=== PATIENT | female | born 1955 | race Caucasian/White ===

== ENCOUNTER → 2017-03-12 | Outpatient (CLI) | payer OTHER ==
[~2017-03-12] MED LIST: CETI10TA84; DSY50; EZET10TA63; LRT5 PO; PRAV20TA
--- NOTE | 2017-03-12 15:51 | MAMMOGRAPHY REPORT ---
BILATERAL DIGITAL SCREENING MAMMOGRAM WITH CAD: 03/12/2017 CLINICAL HISTORY: Routine screening. Patient has no complaints. TECHNIQUE: Bilateral CC and MLO views were obtained. Current study was also evaluated with a Compute r Aided Detection (CAD) system. COMPARISON: Comparison is made to exams dated: 02/28/2016 mammogram, 02/22/2015 mammogram, 02/16/2014 m ammogram, 02/07/2013 mammogram, 01/25/2011 mammogram, and 02/05/2012 mammogram - [facility]. BREAST COMPOSITION: There are scattered areas of fibroglandular density in both breasts. FINDINGS: There is an asymmetry in the upper outer quadrant of the left breast, for which additional spot compression tomosynthesis views and possibly ultrasound are recommended. No other suspicious mass, architectural distortion or cluster of microcalcifications is seen bilatera lly. IMPRESSION: ACR BI-RADS CATEGORY 0: INCOMPLETE EVALUATION: NEED ADDITIONAL IMAGING EVALUATION The asymmetry in the upper outer quadrant of the left breast needs additional evaluation. The patient will be called to schedule an appointment. Approximately 10% of breast cancers are not detected with mammography. A negative mammographic report should not delay biopsy if a clinically suggestive mass is present. Brianne Sandoval M.D. ay/:03/12/2017 08:53:33 Commercial Administrator: Kristel Purdy, [facility] letter sent: Addl Imaging 0 BI-RADS Code: ACR BI-RADS Category 0: Incomplete Evaluation: Need Additional Imaging Evaluation
== END | disposition home or self-care (01) ==
LOC: C.MAMM 07:20
PROVIDERS: ATTEND Obstetrics & Gynecology
DX: Z12.31 Encounter for screening mammogram for malignant neoplasm of breast (principal); N64.89 Other specified disorders of breast

== ENCOUNTER → 2017-03-19 | Outpatient (CLI) | payer OTHER ==
--- NOTE | 2017-03-19 13:10 | MAMMOGRAPHY REPORT ---
UNILATERAL LEFT DIGITAL DIAGNOSTIC MAMMOGRAM TOMOSYNTHESIS AND TARGETED LEFT ULTRASOUND: 03/19/2017 CLINICAL HISTORY: 61-year-old woman called back from screening mammography for left lateral asymmetry . TECHNIQUE: Spot compression left CC and MLO 2-D and tomosynthesis images were obtained. COMPARISON: Comparison is made to exams dated: 03/12/2017 mammogram, 02/28/2016 mammogram, 02/22/2015 m ammogram, 02/16/2014 mammogram, 02/07/2013 mammogram, and 02/14/2012 mammogram - [facility]. BREAST COMPOSITION: There are scattered areas of fibroglandular density in the left breast. FINDINGS: There is effacement of the asymmetry with the additional spot compression left CC view. No persistent mass or architectural distortion on the corresponding tomosynthesis images. Further eval uation with ultrasound was performed. Targeted ultrasound was performed at the lateral left breast including the 12:00, retroareolar and 6: 00 axes. Sonographically normal dense glandular tissue is seen without a suspicious solid or cystic mass. IMPRESSION: ACR BI-RADS CATEGORY 2: BENIGN, TARGETED ULTRASOUND ACR BI-RADS CATEGORY 2: BENIGN Effacement of the left lateral asymmetry, no suspicious sonographic correlate identified. There is n o mammographic or targeted sonographic evidence of malignancy. Return to annual mammogram screening s chedule is recommended. The patient has been verbally notified of the results. Approximately 10% of breast cancers are not detected with mammography. A negative mammographic report should not delay biopsy if a clinically suggestive mass is present. Brianne Sandoval M.D. ay/:03/19/2017 08:59:30 Floor Representative: Fe MARIO(R)(Hermann), [facility] letter sent: Normal 1/2 BI-RADS Code: ACR BI-RADS Category 2: Benign Ultrasound BI-RADS: ACR BI-RADS Category 2: Benign
== END | disposition home or self-care (01) ==
LOC: C.MAMM 08:17
PROVIDERS: ATTEND Family Medicine
DX: N64.89 Other specified disorders of breast (principal)